=== PATIENT | female | born 1965 | race Caucasian/White ===

== ENCOUNTER 2017-02-03 16:33 | Emergency (ER) | payer OTHER ==
--- NOTE | ~2017-02-03 | EKG ---
PATIENT: BRIAN TURNER UNIT #: [id number] Ventricular Rate: 65 BPM Atrial Rate: 65 BPM P-R Interval: 168 ms QRS Duration: 88 ms Q-T Interval: 382 ms QTC Calculation(Bezet): 397 ms P [place]: 3 degrees Calculated R [place]: 62 degrees Calculated T [place]: 50 degrees Diagnosis Line: Normal sinus rhythm Diagnosis Line: Normal ECG Diagnosis Line: When compared with ECG of 19-JUN-2016 20:34, Diagnosis Line: No significant change was found Diagnosis Line: Confirmed by CARRINGTON JARVIS MD ([id number]) on Diagnosis Line: 02/05/2017 8:23:33 AM INTERPRETING MD: MATHEUS NESS
--- NOTE | ~2017-02-03 | CR63 ---
[facility] A Service of [facility] RADIOLOGY TEXT RESULTS PATIENT: BRIAN TURNER LOCATION: SED : 63 UNIT #: [id number] AGE: [address]: HUSSEIN HOUGH SEX: F ORDER DR: [id number] [place] [id number] MR#: [id number] Acc #: [id number] NAME: BRIAN TURNER : 1965 SEX: F STUDY DATE/TIME: 02/03/2017 17:19 UNIT: SED ROOM: STUDY DESCRIPTION: CR Chest 2 View Attending Physician: Hussein Hough Ordering Physician: Hussein Hough Primary Care Physician: Landon Reilly M.D. MEDICAL IMAGING REPORT This report is preliminary unless electronic signature is present. EXAM Chest - PA and lateral, 02/03/2017 HISTORY Shortness of breath for 2 days. FINDINGS PA and lateral examination of the chest upright shows a good expansion of the parenchyma with a normal distribution of the pulmonary vascularity. There is no indication of congestion, effusion, infiltrate, tumor, or nodular density. The pleural reflections and diaphragmatic contours are normal. The cardiac silhouette and mediastinal anatomy is within normal limits. IMPRESSION Normal chest. Dictated by... Sedrick Murcia M.D. THIS IS AN ELECTRONICALLY VERIFIED REPORT Sedrick Murcia M.D. at 02/04/2017 2:15 PM KRT/graham TD: 02/04/2017 09:00 JOB #: [id number] MEDICAL IMAGING REPORT [facility] A Service of [facility] RADIOLOGY TEXT RESULTS PATIENT: BRIAN TURNER LOCATION: SED : 63 UNIT #: [id number] AGE: [address]: HUSSEIN HOUGH SEX: F ORDER DR: Page 1 of 1
[~2017-02-03 16:33] MED LIST: BUSPAR PO; HYDROCODONE PO; LIPITOR; LISINOPRIL; LYRICA PO; PAXIL; VOLTAREN75 MG PO; ZOVIRAX; [UNRECOGNIZED DRUG - OTHER]
[2017-02-03 17:10] LABS: BASOPHIL# 0.1 X10e3 (0-0.3); EOSINOPHIL# 0.2 X10e3 (0-0.7); EOSINOPHIL% 2.4 % (0.0-7.0); HEMOGLOBIN 14.2 gm/dL (12.0-16.0); LYMPHOCYTE# 3.2 X10e3 (1.0-3.5); LYMPHOCYTE% 44.7 % (17.0-45.0); MEAN CELL VOLUME 82.3 FL (83-96); MEAN CORPUSCULAR HEMOGLOBIN 27.9 PG (28-34); MEAN CORPUSCULAR HGB CONC 33.9 g/dL (30-36); MEAN PLATELET VOLUME 8.1 FL (6.5-11.5); MONOCYTE# 0.6 X10e3 (0-1.0); MONOCYTE% 7.7 % (3.0-12.0); NEUTROPHIL# 3.2 X10e3 (1.5-7.1); NEUTROPHIL% 44.2 % (40-75); PLATELET COUNT 234 X10e3 (140-420); RED CELL DISTRIBUTION WIDTH 13.7 % (11.0-15.5); WHITE BLOOD COUNT 7.2 X10e3 (4.0-10.5)
[2017-02-03 17:14] LABS: DIFF IND NO
[2017-02-03 17:25] LABS: POC - CKMB <1.0 ng/mL (0.0-7.9)
[2017-02-03 17:26] LABS: POC - MYOGLOBIN 44.2 ng/mL (0.0-169.0); POC - TROPONIN <0.05 ng/mL (<=0.05)
== END 2017-02-03 19:05 | disposition home or self-care (01) ==
LOC: SED 16:33
PROVIDERS: Nurse Practitioner
DX: J40 Bronchitis, not specified as acute or chronic (principal); J30.2 Other seasonal allergic rhinitis; I10 Essential (primary) hypertension; F17.210 Nicotine dependence, cigarettes, uncomplicated; Z88.0 Allergy status to penicillin; Z88.6 Allergy status to analgesic agent; Z79.899 Other long term (current) drug therapy
CPT/HCPCS: 36415; 71020; 82553; 83874; 84484; 85025; 93005; 94640; 99285; J1885